=== PATIENT | female | born 1975 | race Caucasian/White ===

== ENCOUNTER 2018-07-02 15:07 | Inpatient (IN) | payer SELFPAY ==
[~2018-07-02 15:07] MED LIST: ISOVUE-370 76%-LOCM 1 ML ONE; Iopamidol 370 76% 50 ML VIAL FS ONE
[2018-07-02 16:27] LABS: Hemoglobin 9.8 g/dL (12.0-16.0); Mean Corpuscular HGB CONC 30.6 g/dL (32.0-36.0); Mean Corpuscular Hemoglobin 22.5 pg (27.0-31.0); Mean Corpuscular Volume 73.4 fL (78.0-98.0); Mean Platelet Volume 9.1 fL (7.4-10.4); Platelet Count 223 thou/uL (130-400); RBC Distribution Width 17.1 % (11.5-14.5); Red Blood Cell (RBC) Count 4.35 mill/uL (4.20-5.40); White Blood Cell (WBC) Count 8.9 thou/uL (4.8-10.8)
[2018-07-02 16:35] LABS: ALT (SGPT) 12 U/L (8-55); AST (SGOT) 19 U/L (5-34); Albumin 3.7 g/dL (3.5-5.0); Alkaline Phosphatase 67 U/L (40-150); Anion Gap 11 mmol/L (10-20); BUN (Urea Nitrogen) 11 mg/dL (7.0-18.7); Bilirubin, Total 0.2 mg/dL (0.2-1.2); Calc. Creatinine Clearance 0 mL/min (70-130); Calcium 8.3 mg/dL (7.8-10.44); Carbon Dioxide 23 mmol/L (22-29); Chloride 105 mmol/L (98-107); Estimated GFR-MDRD Greater than 90; Globulin 2.3 g/dL (2.4-3.5); Glucose 104 mg/dL (70-105); Lipase 40 U/L (8-78); Potassium 4.2 mmol/L (3.5-5.1); Sodium 135 mmol/L (136-145)
[2018-07-02] MEDS ORDERED: Morphine 4 MG/ML VIAL ONE (16:39)
[2018-07-02] MEDS ORDERED: Ondansetron HCl/PF 4 MG/2 ML Vial ONE (16:39)
[2018-07-02 16:49] LABS: #Basophils 0.1 thou/uL (0.0-0.2); #Lymphocytes 1.3 thou/uL (1.20-3.40); #Monocytes 0.4 thou/uL (0.11-0.59); #Neutrophils 7.1 thou/uL (1.40-6.50); %Basophils 0.6 % (0.0-1.0); %Eosinophils 0.4 % (0.0-10.0); %Lymphocytes 15.1 % (21.0-51.0); %Monocytes 4.1 % (0.0-10.0); %Neutrophils 79.9 % (42.0-75.0); Anisocytosis SLIGHT = 6-15 cells (100X) (0-5/hpf); Hypochromia SLIGHT = 6-15 cells (100X) (0-5/hpf); MDiff Complete? YES; Ovalocytes SLIGHT = 2-5 cells (100X) (0-1/hpf); PLT Morphology Comment Appears Adequate
[2018-07-02 17:35] LABS: Bilirubin Negative (Negative); Blood, Urine Negative (Negative); Clarity CLEAR (Clear); Glucose, Urine (Dipstick) Negative (Negative); Leukocyte Negative (Negative); Nitrite Negative (Negative); Protein, Urine (Dipstick) Negative (Neg-Trace); Specific Gravity, Urine 1.013 (1.002-1.036)
[2018-07-02 17:37] LABS: Pregnancy Test - Urine (BHCG) Negative (Negative); Pregu Control Background? CLEAR/WHITE (CLR/WHITE); Pregu Control Bar Appear? YES (CONTROL BAR); Specific Gravity 1.013 (1.002-1.036)
--- NOTE | 2018-07-02 19:00 | CT ---
CT OF ABDOMEN AND PELVIS WITH CONTRAST 07/02/18 INDICATION: Pain. FINDINGS: Lung bases are clear. Evidence of prior surgery at the gastroesophageal region. There is prior cholec ystectomy. There is abnormal swirling of the central mesentery vasculature with surrounding mesenteri c edema. There is also small bowel feces and a hyperemic small bowel wall. In addition, there is mult ifocal filling defect of mesenteric vasculature notably within the region of the superior mesenteric venous branches to indicate associated venous thrombosis. There is a fat containing paraumbilical her bobby. Heterogeneity of the uterus and adnexa noted with free pelvic fluid. No pneumoperitoneum evident . IMPRESSION: Findings which indicate sequela from an internal hernia with associated mesenteric venous thrombosis, mesenteric edema, and abnormal small bowel feces with small bowel hyperemia concerning for associate d, developing bowel ischemia. Recommend urgent surgical consultation for further care. These findings were conveyed via telephone to the patient's ER physician, Kemar Stubbs, at 1820 ho urs, 07/02/18. Code CR POS: NELY
[2018-07-02] MEDS ORDERED: Enoxaparin Sodium 60 MG/0.6 ML SYRINGE ONE (20:03)
[2018-07-02] MEDS ORDERED: Bupivacaine HCl 0.5%/Epinephrine 1:200,000/PF 30 ml Vial ONE (21:57)
[2018-07-02] MEDS ORDERED: Piperacillin/Tazobactam 3.375 GM VIAL ONE (22:03)
[2018-07-02] MEDS ORDERED: Ondansetron HCl/PF 4 MG/2 ML Vial IVP PRN (22:18)
[2018-07-02] MEDS ORDERED: Acetaminophen 325 MG TAB PO PRN (22:18)
[2018-07-02] MEDS ORDERED: Fentanyl 100 MCG/2 ML VIAL ONE (22:40)
[2018-07-02] MEDS ORDERED: Midazolam HCl 2 mg/2 ml Vial ONE (22:40)
--- NOTE | 2018-07-02 22:48 | HP ---
HISTORY OF PRESENT ILLNESS: 43-year-old female presents to the emergency room with a 24-hour history of central abdominal pain, nausea, radiation to her back. She was seen in the emergency room and wh ite count 8.9, hemoglobin 9.8, CO2 of 23, sodium 135, BUN [address], [address] scan of abdomen an d pelvis was obtained revealing findings consistent with swirling of the mesentery internal hernia an d superior mesenteric vein thrombosis. Apparently, communication with Dr. Philippe Leiva who had seen her in the past for an axillary abscess was made and he was informed that she had superior mesenteri c vein thrombosis, but not informed of the internal hernia. The patient was given therapeutic Loveno x and plan is to admit her to the Medicine Service. Radiologist communicated to me tonight, asked me if I had seen the patient; and I have called the emergency room, asked about the patient and came to examine her. The patient has a history of Shanta-en-Y gastric bypass in 2001 in [place], revision in 2011 for an int ernal hernia with bowel resection. She has had a laparoscopic cholecystectomy in 2002. She had succ essful weight loss from 326 pounds to 128 pounds. The patient remains hemodynamically stable and in no apparent distress. ALLERGIES: None. TOBACCO: One-third pack per day. ALCOHOL: Rarely. MEDICATIONS: She takes Celexa, BC powder for migraines, and multivitamins daily. PAST SURGICAL HISTORY: Shanta-en-Y gastric bypass in 2001, preoperative weight 326 pounds, successful weight loss to current weight 128 pounds; 2002, laparoscopic cholecystectomy; 2011, internal hernia r equiring laparoscopic bowel resection of some sort; bilateral tubal ligation; in the past. REVIEW OF SYSTEMS: Ten point noncontributory. PHYSICAL EXAMINATION: VITAL SIGNS: Blood pressure 120/74, heart rate 74, respiratory rate 20. EARS, EYES, NOSE, AND THROAT: Unremarkable. LUNGS: Clear to auscultation. CARDIAC: Regular rate and rhythm without murmur or gallop. ABDOMEN: Soft. Fullness in central abdomen. Mild tenderness without peritoneal signs. Diminished bowel sounds. EXTREMITIES: Unremarkable. LABORATORY DATA: As noted above. ASSESSMENT AND PLAN: 1. Radiological findings consistent with an internal hernia. Plan laparoscopic evaluation. She und erstands she may need a laparotomy. Risk of infection, bleeding, re-operation discussed. Unfortunat suzi, she has received therapeutic Lovenox more than an hour ago. Her hemoglobin is 9 currently. We will type and cross her. 2. Tobacco use. 3. History of morbid obesity, history of diabetes, and hypertension; resolved.
[2018-07-03] MEDS ORDERED: SUGAMMADEX SODIUM 200 MG/2 ML VIAL ONE (00:37)
[2018-07-03] MEDS ORDERED: Ondansetron ODT 4 MG TAB PO PRN (00:47)
[2018-07-03] MEDS ORDERED: Dextrose 50% Abboject 50 ML SYRINGE SLOW IVP PRN (00:47)
[2018-07-03] MEDS ORDERED: Dextrose 5% in Water 1,000 ML IV PRN (00:47)
[2018-07-03] MEDS ORDERED: hydrALAZINE 20 MG/ML VIAL SLOW IVP PRN (00:47)
[2018-07-03] MEDS ORDERED: traMADol HCl 50 MG TAB PO PRN ×2 (00:49)
[2018-07-03] MEDS ORDERED: Ondansetron ORAL SOLN. 4 MG/5 ML UDCUP PO PRN ×2 (00:49)
[2018-07-03] MEDS ORDERED: Ondansetron ODT 8 MG TAB PO PRN (00:49)
[2018-07-03] MEDS ORDERED: Ondansetron ODT 8 MG TAB SL PRN (00:49)
[2018-07-03] MEDS ORDERED: Acetaminophen 500 MG TAB PO PRN (00:49)
[2018-07-03] MEDS ORDERED: Acetaminophen 1,000 MG in Premix Bag 1 BAG IVPB PRN (00:53)
[2018-07-03] MEDS ORDERED: Promethazine HCl 25 MG/ML VIAL IM PRN (00:55)
[2018-07-03] MEDS ORDERED: Promethazine HCl 25 MG/ML VIAL SLOW IVP PRN (00:55)
[2018-07-03] MEDS ORDERED: Ondansetron HCl/PF 4 MG/2 ML Vial IVP PRN (00:55)
[2018-07-03] MEDS ORDERED: Multivitamins, Adult 10 ML, Folic Acid 1 MG, Thiamine HCl 100 MG in Dextrose 5 %-0.45 %... IV SCH (01:00)
[2018-07-03 01:48] VITALS: BMI 24.2
[2018-07-03] MEDS: Lactated Ringer's 1,000 ML IV SCH ×3 (02:03→17:57)
[2018-07-03] MEDS: Ketorolac Tromethamine 30 MG/ML VIAL IVP PRN ×3 (03:22→17:52)
[2018-07-03 05:34] LABS: #Lymphocytes 1.1 thou/uL (1.20-3.40); #Monocytes 0.3 thou/uL (0.11-0.59); #Neutrophils 4.8 thou/uL (1.40-6.50); %Basophils 0.4 % (0.0-1.0); %Eosinophils 0.5 % (0.0-10.0); %Lymphocytes 17.4 % (21.0-51.0); %Monocytes 5.2 % (0.0-10.0); %Neutrophils 76.5 % (42.0-75.0); Hemoglobin 8.5 g/dL (12.0-16.0); Mean Corpuscular HGB CONC 31.5 g/dL (32.0-36.0); Mean Corpuscular Hemoglobin 23.1 pg (27.0-31.0); Mean Corpuscular Volume 73.1 fL (78.0-98.0); Mean Platelet Volume 9.2 fL (7.4-10.4); Platelet Count 165 thou/uL (130-400); RBC Distribution Width 16.7 % (11.5-14.5); Red Blood Cell (RBC) Count 3.69 mill/uL (4.20-5.40); White Blood Cell (WBC) Count 6.3 thou/uL (4.8-10.8)
[2018-07-03 05:57] LABS: ALT (SGPT) 249 U/L (8-55); AST (SGOT) 571 U/L (5-34); Albumin 3.2 g/dL (3.5-5.0); Alkaline Phosphatase 108 U/L (40-150); Anion Gap 11 mmol/L (10-20); BUN (Urea Nitrogen) 9 mg/dL (7.0-18.7); Bilirubin, Total 0.3 mg/dL (0.2-1.2); Calc. Creatinine Clearance 120 mL/min (70-130); Calcium 7.5 mg/dL (7.8-10.44); Carbon Dioxide 21 mmol/L (22-29); Chloride 108 mmol/L (98-107); Estimated GFR-MDRD Greater than 90; Globulin 1.8 g/dL (2.4-3.5); Glucose 115 mg/dL (70-105); Potassium 4.1 mmol/L (3.5-5.1); Sodium 136 mmol/L (136-145)
--- NOTE | 2018-07-03 06:48 | OP ---
DATE OF PROCEDURE: 07/03/2018 PREOPERATIVE DIAGNOSIS: Bariatric surgery, status post Shanta-en-Y gastric bypass with an internal her bobby by CAT scan with swirling of the mesentery. POSTOPERATIVE DIAGNOSIS: Bariatric surgery, status post Shanta-en-Y gastric bypass with an internal he rnia by CAT scan with swirling of the mesentery with what appeared to be mild amount of chylous ascit es and callus fluid (recent fatty meal, the patient states she was licking on a Swedish ceron, but did n ot eat it prior the operation). PROCEDURES: Diagnostic laparoscopy with reduction of internal hernia with closure of internal hernia defect, mesentery and omentum defect over the colon. ANESTHESIA: General. Local 0.5% Marcaine with epinephrine, 30 mL. PROCEDURE IN DETAIL: The patient was taken to the operating room where under general anesthesia, Fol ey catheter was placed . Abdomen was prepared with ChloraPrep, draped in routine fashion. Loca l anesthetic infiltrated into skin and subcutaneous tissue about each port site. Left lateral subcos yash incision was made and pneumoperitoneum to 15 mmHg was obtained with Veress needle, replacing it w ith a 5-mm port. Left lateral mid abdominal incision was made and a 5 port placed and left lower tc drant incision was made and a 5 port placed. There were some adhesions in the upper abdomen, omentum to the anterior abdominal wall taken down with the LigaSure. There was an adhesion of omentum down to the right pelvis taken down with the LigaSure. I then was able to identify the terminal ileum at the ileocecal junction and terminal ileum around retrograde, pulling it out from beneath, an internal hernia defect reducing the bowel, terminal ileum was very small, jejunum was larger as it was reduce d slowly. Then evaluated the Shanta limb, it was probably 150 cm Shanta limb and the jejunojejunostomy i dentified and the biliary limb identified. I could not see the defect from the left side of the abdo men, right lateral subcostal incision was made and a 5 port placed, infraumbilical incision made and a 5 port placed, right lower quadrant incision made and a 5 port placed. I then visualized the anato my from the patient's right side. I was able see mesenteric defect potentially represented an technology development intern al hernia and closed this with the EndoStitch. Bowel was run again and there were no other abnormali ties. The bowel was healthy. There was no evidence of ischemia or edema. Pneumoperitoneum reduced and all instruments removed and all skin incisions approximated with interrupted subdermal 4-0 Monocr yl and DermaGlue applied.
--- NOTE | 2018-07-03 06:51 | HP ---
CODE STATUS FOR THIS PATIENT: FULL CODE. TIME OF EVALUATION: 10:00 p.m. CHIEF COMPLAINT: Abdominal pain. HISTORY OF PRESENT ILLNESS: This is a 43-year-old female patient with past medical history of morbid obesity. Patient reported that the pain was started as a burning sensation radiating to the right u pper quadrant, right flank, unable to breathe properly, also associated with nausea and vomiting, dante ecially after eating. She has a history of gastric bypass, cholecystectomy, stomach removal, and col ectomy. Symptoms are severe, the patient got a CAT scan done and the diagnosis of superior mesenteri c venous thrombosis, case had been discussed with the surgery, which has a recommendation for anticoa gulation. After evaluation of the case, decision was to take the patient for OR, Dr. Nelson was taki ng the patient for surgery, and at this point, she has recovered from the procedure and in the surgic al floor. REVIEW OF SYSTEMS: Constitutional: No fever, no chills. Generalized weakness. Respiratory: No co ugh, sputum production or shortness of breath. Cardiovascular: No chest pain, palpitation or shortn ess of breath. Gastrointestinal: The patient had nausea, vomiting, abdominal pain as described in H PI. 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 Genitourinary: No burning with urination. Extremities: No leg swelling. All other systems were reviewed and are negative except for the fin dings mentioned above. PAST MEDICAL HISTORY: For this patient includes hypertension, history of morbid obesity, status post bypass surgery. PAST SURGICAL HISTORY: Esophageal repair, hernia repair, cholecystectomy laparoscopic, x2, Shanta-en-Y gastric bypass, tonsillectomy, and tubal ligation. SOCIAL HISTORY: No alcohol, no drug used, smoke a half a pack per day. FAMILY HISTORY: Reviewed and noncontributory for current presentation. ALLERGIES: No known drug allergies. REPORTED MEDICATIONS: Celexa, , BC powder, naproxen. PHYSICAL EXAMINATION: VITAL SIGNS: On presentation, blood pressure 138/95 with heart rate of 100, respiratory rate was 17, temperature of 98.2. GENERAL APPEARANCE: Patient is alert, oriented, in no acute distress. HEENT: Eyes: Normal conjunctivae. Moist oral mucosa, anicteric. NECK: No JVD. RESPIRATORY: Bilateral air entry. No rales, no wheezing. Symmetrical expansion. CARDIOVASCULAR: Normal rate, regular rhythm. No murmurs, no gallop. No edema. ABDOMEN: Soft, abdominal tenderness mostly in the right upper quadrant. MUSCULOSKELETAL: Baseline range of motion and strength. No tenderness. SKIN: Warm and intact. No pallor, no rash, no redness. NEUROLOGIC: Baseline sensory. No evidence of any new focal weakness. Baseline speech. Cranial ner ves seemed to be intact. PSYCHIATRIC: The patient is in a good mood. No anxiety, oriented, ultimate judgement. X-RAY FINDINGS: Abdomen CT was done. Findings indicate sequela from an internal hernia with associa chandler mesenteric venous thrombosis, mesenteric edema and abnormal small bowel pieces with small bowel h yperemia concerning for associated developing bowel ischemia and recommend urgent surgical consultati on for further care. LABORATORY DATA: The labs were reviewed. Patient has white count 8.9, hemoglobin 9.8, platelet coun t 223. Sodium 135, potassium 4.2, chloride 105, carbon dioxide 23, anion gap 11, BUN 11, creatinine 0.7, GFR greater than 90. Glucose 104. Lactic acid 1.7. Globulin 2.3. Lipase is normal. UA is no rmal. ASSESSMENT AND PLAN: The patient will be placed in the hospital for the following medical problems. 1. Mesenteric ischemia, likely secondary to internal hernia, initial recommendation as per emergency room physician was to give anticoagulation. The patient received Lovenox until evaluation. Patient has been taken to the operating room, the patient has tolerated procedure well, follow surgery recom mendations. 2. Chronic microcytic anemia, unclear etiology, monitor hemoglobin, we will transfuse if needed. 3. Hyponatremia is 135, recently mild, no need for any acute intervention. We will monitor, we will check that currently. 4. Intractable pain and mesenteric ischemia, patient needed Toradol for control. 5. Deep venous thrombosis prophylaxis.
[2018-07-03] MEDS ORDERED: Enoxaparin Sodium 40 MG/0.4 ML SYRINGE SC SCH (09:00)
[2018-07-03] MEDS ORDERED: Enoxaparin Sodium 60 MG/0.6 ML SYRINGE SC SCH (09:00)
[2018-07-03] MEDS ORDERED: ISOVUE-370 76%-LOCM 1 ML ONE (12:05)
[2018-07-03] MEDS ORDERED: Lactated Ringer's 1,000 ML IV SCH (15:15)
[2018-07-03] MEDS ORDERED: CAFFEINE PO PRN (15:30)
[2018-07-03] MEDS ORDERED: ASPIRIN PO PRN (15:30)
[2018-07-03] MEDS ORDERED: Citalopram 20 MG TAB PO SCH (15:30)
[2018-07-03 15:54] VITALS: BP 132/89; TEMP 97.9
[2018-07-03] MEDS ORDERED: Lorazepam 2 MG/ML VIAL SLOW IVP PRN (16:35)
--- NOTE | 2018-07-03 16:36 | PDOC.PN ---
- Subjective Encounter Start Date: 07/03/18 Encounter Start Time: 16:36 Subjective: feels scared but no pain in abdomen.no nausea/vomiting - Objective MAR Reviewed: Yes Vital Signs & Weight: Vital Signs (12 hours) Temp Pulse Resp BP Pulse Ox 07/03/18 15:46 97.9 F 111 H 16 132/89 100 07/03/18 11:41 97.5 F L 70 18 113/74 100 07/03/18 07:38 98.0 F 73 16 100 07/03/18 07:11 97.8 F 79 16 126/76 100 Weight Weight 141 lb I&O: 07/02/18 07/03/18 07/04/18 06:59 06:59 06:59 Intake Total 1080 Output Total 500 Balance 580 Result Diagrams: 07/03/18 04:56 07/03/18 04:56 Phys Exam - Physical Examination Constitutional: NAD anxious,tearful HEENT: PERRLA, moist MMs, sclera anicteric, oral pharynx no lesions Neck: no nodes, no JVD, supple, full ROM Respiratory: no wheezing, no rales, no rhonchi, clear to auscultation bilateral Cardiovascular: RRR, no significant murmur, no rub Gastrointestinal: soft, non-tender, no distention, positive bowel sounds surgical sites look good Musculoskeletal: no edema, pulses present Neurological: non-focal, normal sensation, moves all 4 limbs Psychiatric: normal affect, A&O x 3 Skin: no rash Dx/Plan (1) Internal hernia Code(s): K45.8 - OTH ABDOMINAL HERNIA WITHOUT OBSTRUCTION OR GANGRENE Status: Acute Comment: s/p Laproscopic reduction (2) Transaminasemia Code(s): R74.0 - NONSPEC ELEV OF LEVELS OF TRANSAMNS & LACTIC ACID DEHYDRGNSE Status: Acute (3) Abdominal pain Code(s): R10.9 - UNSPECIFIED ABDOMINAL PAIN Status: Acute (4) Mesenteric vein thrombosis Code(s): I81 - PORTAL VEIN THROMBOSIS Status: Suspected (5) Mesenteric ischemia Code(s): K55.9 - VASCULAR DISORDER OF INTESTINE, UNSPECIFIED Status: Suspected Comment: No evidence of same on surgery (6) AKILA (iron deficiency anemia) Code(s): D50.9 - IRON DEFICIENCY ANEMIA, UNSPECIFIED Status: Chronic Comment : check iron studies.Microcytic,hypochromic - Plan PT/OT, out of bed/ambulate, DVT proph w/SCDs LFT elevation overnight.discussed w .D/T venous congestion -: 1 dose lovenox last night -: repeat CT today neg for any thrombus.discussed w Dr. joe -: no indication for anticoagulants. -: Ok to Dc per my discussion w GS * . Review of Systems - Review of Systems Constitutional: negative: fever, chills, sweats, weakness, malaise, other Eyes: negative: Pain, Vision Change, Conjunctivae Inflammation, Eyelid Inflammation, Redness, Other ENT: negative: Ear Pain, Ear Discharge, Nose Pain, Nose Discharge, Nose Congestion, Mouth Pain, Mouth Swelling, Throat Pain, Throat Swelling, Other Respiratory: negative: Cough, Dry, Shortness of Breath, Hemoptysis, SOB with Excertion, Pleuritic Pain, Sputum, Wheezing Cardiovascular: negative: chest pain, palpitations, orthopnea, paroxysmal nocturnal dyspnea, edema, light headedness, other Gastrointestinal: negative: Nausea, Vomiting, Abdominal Pain, Diarrhea, Constipation, Melena, Hematochezia, Other Genitourinary: negative: Dysuria, Frequency, Incontinence, Hematuria, Retention , Other Musculoskeletal: negative: Neck Pain, Shoulder Pain, Arm Pain, Back Pain, Hand Pain, Leg Pain, Foot Pain, Other Skin: negative: Rash, Lesions, Jonah, Bruising, Other Neurological: negative: Weakness, Numbness, Incoordination, Change in Speech, Confusion, Seizures, Other - Medications/Allergies Allergies/Adverse Reactions: Allergies Allergy/AdvReac Type Severity Reaction Status Date / Time No Known Drug Allergies Allergy Verified 07/03/18 02:00 Medications: Current Medications Acetaminophen (Tylenol) 650 mg PO Q4H PRN PRN Reason: Headache/Fever or Pain Acetaminophen (Tylenol) 1,000 mg PO Q6H PRN PRN Reason: Moderate to Severe Pain (6-10) Citalopram Hydrobromide (Celexa) 20 mg PO DAILY [facility] Citalopram Hydrobromide (Celexa) 20 mg PO NOW CYNDIE Stop: 07/03/18 17:30 Last Admin: 07/03/18 15:39 Dose: 20 mg Dextrose/Water (Dextrose 50%) 25 gm SLOW IVP PRN PRN PRN Reason: Hypoglycemia Enoxaparin Sodium (Lovenox) 40 mg SC 0900 CYNDIE Last Admin: 07/03/18 08:57 Dose: 40 mg Glucagon (Glucagon) 1 mg IM PRN PRN PRN Reason: Hypoglycemia Hydralazine HCl (Apresoline) 10 mg SLOW IVP Q4H PRN PRN Reason: SBP > 170 or DBP > 100 Acetaminophen 1,000 mg/ Device 100 mls @ 400 mls/hr IVPB Q6H PRN PRN Reason: Fever/Mild Pain Stop: 07/04/18 00:54 Last Admin: 07/03/18 03:23 Dose: 100 mls Multivitamins 10 ml/ Folic Acid 1 mg/ Thiamine HCl 100 mg / Dextrose/Sodium Chloride 1,011.2 mls @ 126.4 mls/hr IV Q24HR CYNDIE PRN Reason: As Directed Stop: 07/05/18 08:59 Last Admin: 07/03/18 02:04 Dose: 1,011.2 mls Dextrose/Water (D5w) 1,000 mls @ 0 mls/hr IV .Q0M PRN; As Directed PRN Reason: Hypoglycemia Lactated Ringer's (Lactated Ringer's) 1,000 mls @ 120 mls/hr IV .Q8H20M [facility] Last Admin: 07/03/18 11:29 Dose: 1,000 mls Thiamine HCl 100 mg/ Sodium (Chloride) 101 mls @ 198.039 mls/hr IVPB Q24HR [facility] [place] Lactated Ringer's (Lactated Ringer's) 1,000 mls @ 120 mls/hr IV .Q8H20M [facility] [place] Last Admin: 07/03/18 15:41 Dose: Not Given Ketorolac Tromethamine (Toradol) 30 mg IVP Q6H PRN PRN Reason: Pain Stop: 07/08/18 00:50 Last Admin: 07/03/18 09:01 Dose: 30 mg Loratadine (Claritin) 10 mg PO DAILY [facility] [place] Ondansetron HCl (Zofran) 4 mg IVP Q6H PRN PRN Reason: Nausea/Vomiting Ondansetron HCl (Zofran Odt) 4 mg PO Q6H PRN PRN Reason: Nausea/Vomiting Last Admin: 07/03/18 07:16 Dose: 4 mg Ondansetron HCl (Zofran Odt) 8 mg SL BIDPRN PRN PRN Reason: SEVERE Nausea/Vomiting Aspirin/Caffeine [Bc Powder Packet] 1 Packet 0 each PO Q6H PRN PRN Reason: Headache Sodium Chloride (Flush - Normal Saline) 10 ml IVF PRN PRN PRN Reason: Saline Flush Tramadol HCl (Ultram) 50 mg PO Q6H PRN PRN Reason: Mild-Moderate Pain (1-5) Tramadol HCl (Ultram) 100 mg PO Q6H PRN PRN Reason: Moderate to Severe Pain (6-10) Last Admin: 07/03/18 02:34 Dose: 100 mg
--- NOTE | 2018-07-03 18:02 | PRG ---
DATE OF SERVICE: 07/03/2018 SUBJECTIVE: Madeleine Zurita is doing well today. OBJECTIVE: VITAL SIGNS: Stable, afebrile. She is tolerating her bariatric diet. 97.9, heart rate 70, 16, 132/ 89. LUNGS: Clear to auscultation. CARDIAC: Regular rate and rhythm without murmur or gallop. ABDOMEN: Soft, bowel sounds present, postoperative tenderness as expected. Surgical laparoscopic si tamar well healed. LUNGS: Clear to auscultation. LABORATORY DATA: This morning, her sodium was 136, chloride 108, carbon dioxide 21, BUN and creatini ne 9 and 0.6. Her liver function tests are slightly elevated, AST 571, ALT 249 related to her venous congestion, but this should resolve with time. Bilirubin 0.3. Lipase was not checked, again this w as normal yesterday. At 5:00 p.m. after 24 hours after her last contrast from her CT scan, a repeat CAT scan revealed reso lution of the venous congestion and there was no evidence of venous thrombus and thus she does not ne ed to be anticoagulated. The venous congestion was resolved with decompression of her internal herni a. She will follow up in my office in 2-3 weeks. She will resume her bariatric diet.
--- NOTE | 2018-07-03 18:31 | CT ---
CT ABDOMEN AND PELVIS WITH CONTRAST: 07/03/18 COMPARISON: Previous day. INDICATION: Recent internal hernia, status post surgical repair. History of prior Shanta-En-Y gastric bypass. Follo wup for mesenteric venous thrombosis. FINDINGS: There has been interval surgery with a prominent volume of postoperative soft tissue air seen. There has been interval improvement with regard to the central swirling of mesenteric structures documented on the previous CT scan. The prior fecalized small bowel has improved with a predominant fluid densi ty of small bowel seen. The superior mesenteric vein and subsequent, visualized branches, are grossly patent with interval improvement of prior areas of diminished venous contrast. The solid abdominal o rgans are grossly stable. There is enteric contrast occupying the stool filled colon. Abdominal aorta is nonaneurysmal. There is incidental note of pneumomediastinum. Component of anterior minimal pneum othorax located at midline underlying the lower aspect of the sternum noted. This may in fact reflect extension of the adjacent area of the mediastinum, although does extend anteriorly to underlying the anterior chest wall. IMPRESSION: 1. Interval surgical correction of prior internal hernia with improved appearance of the previou sly noted mesenteric and volvulized appearance. 2. No discrete evidence for mesenteric vein thrombosis. 3. Soft tissue air of the body wall related to surgery. In addition, there is pneumomediastinum and trace pneumothorax which is located at the ventral chest, involving the midline, substernal regio n. Telephone call of findings placed to the patient's surgeon, Luis Enrique Nelson, 1724 hours, 07/03/18. Code CR
--- NOTE | 2018-07-04 02:34 | DIS ---
DATE OF ADMISSION: 07/02/2018 DATE OF DISCHARGE: 07/03/2018 DISCHARGE DIAGNOSES: 1. Internal hernia after Shanta-en-Y gastric bypass. 2. Venous congestion secondary to internal hernia. 3. Tobacco use. HISTORY: A 43-year-old female status post laparoscopic Shanta-en-Y gastric bypass 2001 in [place], rev ision in 2011 for some sort of internal hernia with bowel resection performed laparoscopically and mancera bsequent lower laparoscopic cholecystectomy in 2002, successful weight loss related to her bariatric surgery from 226 pounds to current weight 128 pounds. The patient was doing well until she developed abdominal pain reported in the emergency room revealing a CAT scan with internal hernia swirling mes enteric edema. White count was normal. Vital signs normal. She had abdominal tenderness, but no pe ritoneal signs. She was taken to the operating room and laparoscopic reduction of internal hernia pe rformed. Closure of the defect performed laparoscopically. Postoperatively, she was convalesced, to lerated her diet. Repeat CAT scan was obtained revealing normal mesenteric venous flow without throm bus. The patient's abdomen is soft and nontender. Liver function tests are elevated related to her venous congestion that should improve with time. The patient is stable for discharge and will resume her home medications and encouraged tobacco cessation resuming her Celexa and encouraged to take her vitamins daily and given tramadol and Zofran p.r.n. use, although she does not think she will need t he latter too. Activity without restrictions. No lifting restrictions. Resume her bariatric diet. Follow up in the office in 2-3 weeks.
[2018-07-04] MEDS ORDERED: Citalopram 20 MG TAB PO SCH (09:00)
[2018-07-04] MEDS ORDERED: Loratadine 10 MG TAB PO SCH (09:00)
== END 2018-07-03 19:09 | disposition home or self-care (01) | DRG 358 ==
LOC: ERS 15:07 → SDC/OP 22:55 → SJJU 07-03 00:47
PROVIDERS: ADMIT Hospitalist; ATTEND Hospitalist
PROC: 0DQV0ZZ Repair Mesentery, Open Approach (ICD-10-PCS; principal; 2018-07-03)
DX: K46.9 Unspecified abdominal hernia without obstruction or gangrene (principal); Z98.84 Bariatric surgery status; I87.8 Other specified disorders of veins; F17.210 Nicotine dependence, cigarettes, uncomplicated; R74.0 Nonspecific elevation of levels of transaminase and lactic acid dehydrogenase [LDH]; D50.9 Iron deficiency anemia, unspecified; I10 Essential (primary) hypertension; E11.9 Type 2 diabetes mellitus without complications
CPT/HCPCS: 36415; 74177; 80053; 81003; 81025; 83605; 83690; 85025; 86850; 86900; 86901; 93005; 96360; 96361; 96365; 96372; 96375; 96376; J0131; J0670; J1650; J1885; J2060; J2250; J2270; J2405; J2543; J3010; J3411; J7042; Q0162

== ENCOUNTER 2018-10-03 12:42 | Emergency (ER) | payer MEDICAID ==
--- NOTE | 2018-10-03 14:44 | RAD ---
PA AND LAERAL CHEST: HISTORY: Cough and fever. COMPARISON: A 02/28/2014 study. FINDINGS: Heart size and mediastinum are within normal limits. The lungs are clear of infiltrates. No signifi cant bony findings. IMPRESSION: No active intrathoracic disease. POS: [facility]
== END 2018-10-03 14:57 | disposition home or self-care (01) ==
LOC: ERS 12:42
DX: J20.9 Acute bronchitis, unspecified (principal); I10 Essential (primary) hypertension; F17.210 Nicotine dependence, cigarettes, uncomplicated; Z79.899 Other long term (current) drug therapy
CPT/HCPCS: 71046

== ENCOUNTER 2021-05-04 03:23 | Emergency (ER) | payer OTHER, MEDICAID | END 2021-05-04 05:19 | LOC: ERS 03:23 | DX: R40.0 Somnolence (principal); I10 Essential (primary) hypertension; F17.210 Nicotine dependence, cigarettes, uncomplicated | CPT/HCPCS: 99283 ==

== ENCOUNTER 2021-10-19 11:03 | Emergency (ER) | payer SELFPAY ==
[2021-10-19] MEDS ORDERED: Lorazepam 2 MG/ML VIAL ONE (11:37)
[2021-10-19] MEDS ORDERED: Ondansetron PF 4 MG/2 ML Vial ONE (11:37)
[2021-10-19 11:56] LABS: #Lymphocytes 2.8 thou/uL (1.20-3.40); #Monocytes 0.8 thou/uL (0.11-0.59); #Neutrophils 5.3 thou/uL (1.40-6.50); %Basophils 0.5 % (0.0-1.0); %Eosinophils 0.2 % (0.0-10.0); %Neutrophils 59.4 % (42.0-75.0); Mean Corpuscular Hemoglobin 19.4 pg (27.0-31.0); Platelet Count 295 thou/uL (130-400); RBC Distribution Width 17.5 % (11.5-14.5); Red Blood Cell (RBC) Count 4.65 mill/uL (4.20-5.40); White Blood Cell (WBC) Count 8.9 thou/uL (4.8-10.8)
[2021-10-19 12:16] LABS: ALT (SGPT) 18 U/L (8-55); AST (SGOT) 18 U/L (5-34); Albumin 3.9 g/dL (3.5-5.0); Alkaline Phosphatase 77 U/L (40-110); Anion Gap 13 mmol/L (10-20); BUN (Urea Nitrogen) 14 mg/dL (7.0-18.7); Bilirubin, Total 0.3 mg/dL (0.2-1.2); Calc. Creatinine Clearance 0 mL/min (70-130); Calcium 8.9 mg/dL (7.8-10.44); Carbon Dioxide 22 mmol/L (22-29); Chloride 107 mmol/L (98-107); Glucose 77 mg/dL (70-105); Lipase 23 U/L (8-78); Potassium 3.8 mmol/L (3.5-5.1); Protein, Total 6.9 g/dL (6.0-8.3); Sodium 138 mmol/L (136-145)
[2021-10-19] MEDS ORDERED: Iopamidol-370 76% 500 ML 1 ML ONE (13:06)
[2021-10-19 14:10] LABS: Amphetamine Detected (NotDetected); Barbiturates Screen Not Detected (NotDetected); Benzodiazepine Screen Not Detected (NotDetected); Cocaine Metabolite Screen Not Detected (NotDetected); Methadone Not Detected (NotDetected); Methamphetamine Detected (NotDetected); Opiate Screen Detected (NotDetected); Oxycodone Screen Not Detected (NotDetected); Phencyclidine (PCP) Not Detected (NotDetected); THC/Cannabinoid Screen Detected (NotDetected); Tricyclic Screen Not Detected (NotDetected)
[2021-10-19 15:23] LABS: Bacteria/HPF 4+ HPF (None Seen); Bilirubin Negative (Negative); Blood, Urine Negative (Negative); Clarity Clear (Clear); Glucose, Urine (Dipstick) Normal (Negative); Ketone, Urine Negative (Negative); Leukocyte 250 Leu/uL (Negative); Nitrite Negative (Negative); Protein, Urine (Dipstick) Negative (Neg-Trace); RBC/HPF 0-3 HPF (0-3); Specific Gravity, Urine 1.039 (1.002-1.036); Squamous Epithelial None Seen HPF (0-3); Urobilinogen Normal mg/dL (Less than 2); WBC/HPF Greater than 50 HPF (0-3); pH, Urine 5.5 (5.0-9.0)
[2021-10-19 15:24] LABS: Pregnancy Test - Urine (BHCG) Negative (Negative); Pregu Control Background? CLEAR/WHITE (CLR/WHITE); Pregu Control Bar Appear? YES (CONTROL BAR); Specific Gravity 1.039 (1.002-1.036)
[2021-10-19] MEDS ORDERED: cefTRIAXone\\ROCEPHIN 1 GM VIAL ONE (15:26)
[2021-10-19] MEDS ORDERED: Doxycycline 100 MG CAP PO SCH (16:00)
[2021-10-22 20:49] LABS: Chlamydia by PCR Not Detected (NotDetected); GC by PCR Not Detected (NotDetected)
== END 2021-10-19 16:25 | disposition home or self-care (01) ==
LOC: ERS 11:03
DX: N39.0 Urinary tract infection, site not specified (principal); R10.84 Generalized abdominal pain; F41.9 Anxiety disorder, unspecified; F17.210 Nicotine dependence, cigarettes, uncomplicated
CPT/HCPCS: 51701; 74177; 80053; 80306; 81003; 81015; 81025; 83605; 83690; 85025; 87480; 87491; 87510; 87591; 87660; 96365; 96366; 96367; 96368; 96375; J0696; J2060; J2405; Q9967